=== PATIENT | male | born 1990 | race Two or more races ===

== ENCOUNTER 2016-12-24 01:43 | Emergency (ER) | payer SELFPAY ==
[~2016-12-24] VITALS: Ht 182.9 cm; Wt 77.1 kg
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
--- NOTE | 2016-12-24 02:17 | NUR ---
patient to ct.
[2016-12-24 02:19] LABS: BASOPHILS % (AUTO) 0.3 % (0.0-2.0); HEMATOCRIT 43 % (39-51); HEMOGLOBIN 14.7 g/dL (13.5-17.5); LYMPHOCYTES % (AUTO) 14.9 % (20.0-44.0); MEAN CORPUSCULAR HEMOGLOBIN 31 PG (26.0-33.0); MEAN CORPUSCULAR HGB CONC 35 g/dl (31.0-36.0); MEAN CORPUSCULAR VOLUME 90 fL (80-96); MONOCYTES # (AUTO) 0.4 /CMM (0.1-1.30); MONOCYTES % (AUTO) 3.1 % (2.0-12.0); NEUTROPHILS # (AUTO) 11.2 /CMM (1.8-8.9); NEUTROPHILS % (AUTO) 81.7 % (43.0-81.0); PLATELET COUNT (AUTO) 190 /CMM (150-450); RDW COEFFICIENT OF VARIATION 15.5 (11.5-15.0); RED BLOOD CELL COUNT(AUTO) 4.72 MIL/uL (4.5-6.0); WHITE BLOOD COUNT (AUTO) 13.7 K/uL (4.3-11.0)
[2016-12-24 02:33] LABS: INR 1.01 (0.87-1.13); PROTHROMBIN TIME 10.8 SECS (9.5-12.7)
[2016-12-24 02:35] LABS: CALCIUM, SERUM 8.6 mg/dL (8.5-10.1); CREATININE 0.7 mg/dL (0.6-1.3); POTASSIUM 3.9 mmol/L (3.5-5.1)
[2016-12-24 03:09] VITALS: BP 126/75
--- NOTE | 2016-12-24 03:12 | NUR ---
patient is responsive to verbal and tactile stimuli, refused to answer questions. vss. able to move all extremities. neuro checks/monitoring done.
--- NOTE | 2016-12-24 03:33 | NUR ---
CALLED [facility] FOR [facility] HIGHER LEVEL OF CARE TRANSFER. INFORMED THAT NO ICU BEDS AVAILABLE.
[2016-12-24] MEDS ORDERED: ONDANSETRON HCL/PF 4 MG/2 ML VIAL ONE (03:34)
--- NOTE | 2016-12-24 03:42 | NUR ---
CALLED [facility] TO [facility]PID[facility] RADIOLOGIST REPORT FOR CT IMAGING.
--- NOTE | 2016-12-24 03:46 | NUR ---
CALLED [facility] AT [facility] [phone] REPORTS FAXED
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
[2016-12-24] MEDS ORDERED: ONDANSETRON HCL/PF 4 MG/2 ML VIAL IV ONE (04:00)
--- NOTE | 2016-12-24 04:00 | NUR ---
DR LAZARO ON THE PHONE WITH DR STEPHEN FROM [facility].
--- NOTE | 2016-12-24 04:08 | NUR ---
DR LAZARO AT BEDSIDE.
--- NOTE | 2016-12-24 04:17 | NUR ---
REPORT GIVEN TO ANAMARIA CANTRELL IN [facility] ER FOR SAL.
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
== END 2016-12-24 04:49 | disposition short-term general hospital (02) ==
LOC: ER 01:46
DX: S06.5X9A Traumatic subdural hemorrhage with loss of consciousness of unspecified duration, initial encounter (principal); S02.32XA Fracture of orbital floor, left side, initial encounter for closed fracture; F10.129 Alcohol abuse with intoxication, unspecified; F11.10 Opioid abuse, uncomplicated; R51 Headache; R79.89 Other specified abnormal findings of blood chemistry; Y04.0XXA Assault by unarmed brawl or fight, initial encounter; Y93.89 Activity, other specified; Y92.89 Other specified places as the place of occurrence of the external cause; Y99.9 Unspecified external cause status
CPT/HCPCS: 36415; 70450-TC; 70486-TC; 72125-TC; 80048-TC; 82962-TC; 85025-TC; 85730-TC; 87081-TC; A4606; G0480; J2405; L0172; Z7610